=== PATIENT | male | born 1990 | race Caucasian/White ===

== ENCOUNTER 2016-04-13 15:55 | Emergency (ER) | payer SELFPAY ==
--- NOTE | 2016-04-13 16:28 | EDPRACDOC ---
- General Information Stated Complaint: TOOTHACHE Time Seen by Provider: 04/13/16 16:22 Home Medications: Home Medications Ketoprofen 50 mg PO BID PRN #20 capsule 02/12/16 Amoxicillin Trihydrate [Amoxicillin] 500 mg PO TID #30 tab 04/13/16 Meloxicam [Mobic] 7.5 mg PO BID #20 tab 04/13/16 Allergies/Adverse Reactions: Allergies Allergy/AdvReac Type Severity Reaction Status Date / Time cefaclor [From [facility]] Allergy Hives* Verified 02/12/16 15:04 - History of Present Illness Onset: 3 DAYS HPI: PT PRESENTS TODAY WITH LEFT LOWER TOOTH PAIN X 3 DAYS. NO FEVER. 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) - Social Medical History Smoking Status: Heavy tobacco smoker (5 or more cigarettes/day or daily pipe/ cigar) EDM Review of Systems - Review of Systems ROS Negative Except as Marked: Yes All systems reviewed and were negative except as marked Constitutional: No Symptoms Reported Eyes: No Symptoms Reported Ears: No Symptoms Reported Throat: No Symptoms Reported Nose: No Symptoms Reported Mouth: Tooth Pain Respiratory: No Symptoms Reported Cardiovascular: No Symptoms Reported Gastrointestinal: No Symptoms Reported Neurological: No Symptoms Reported Musculoskeletal: No Symptoms Reported Integumentary: No Symptoms Reported - Physical Exam Constitutional: Alert (Awake), No apparent distress Oriented to: Time, Person, Place Last recorded Vital Signs: Oxygen Pulse Oxygen Saturation O2 Device Oxygen Flow Rate Fraction of Inspired Oxygen ( FIO2) - HEENT Head: Normal Eye Exam: Normal Oropharynx: Other (LARGE CAVITY NOTED TO TOOTH #20; NO APPARENT INFECTION) Tympanic Membrane: Normal ENT EAC: Normal Nose: No Symptoms Reported Neck: Normal, Denies Pain, Midline - Respiratory/Cardiovascular Respiratory: Normal - CTA Cardiovascular: Normal - GI Palpation: Normal Tenderness: Non tender - Musculoskeletal Back: Normal Extremities: Normal - Integumentary Skin: Normal Lymphatics: Normal - Neurologic Mood Description: Normal Thought: Coherent Decision Time to Discharge: 16:27 - Departure Disposition: Home Condition: Good Final Diagnosis: Dental caries Instructions: Dental Caries (ED) Education/Counseling Given To: Patient Education/Counseling Given Regarding: Diagnosis, Treatment, Follow Up Referrals: None,No Provider [Primary Care Provider] - One Week SUKUMAR YUSUF [NonStaff] - One Week Prescriptions: New Amoxicillin Trihydrate [Amoxicillin] 500 mg PO TID #30 tab Meloxicam [Mobic] 7.5 mg PO BID #20 tab No Action Ketoprofen 50 mg PO BID PRN #20 capsule PRN Reason: Pain Forms: Excuse Note Additional Instructions: [facility] [phone]
[2016-04-13 16:38] VITALS: BP 133/70; PULSE 73; TEMP 97.6; BMI 22.8
== END 2016-04-13 16:34 | disposition home or self-care (01) ==
LOC: EDMC 15:55
DX: K02.9 Dental caries, unspecified (principal)
CPT/HCPCS: 99282